=== PATIENT | female | born 1985 | race Caucasian/White ===

== ENCOUNTER → 2016-10-23 | Outpatient (CLI) | payer SELFPAY | LOC: COL.RAD 07:56 | DX: N97.9 Female infertility, unspecified (principal); Z98.891 History of uterine scar from previous surgery ==

== ENCOUNTER 2017-07-27 22:55 | Emergency (ER) | payer BC ==
[~2017-07-27] VITALS: Ht 162.6 cm; Wt 72.3 kg
[2017-07-27 23:00] VITALS: BP 129/79; TEMP 98.3
[2017-07-27] MEDS ORDERED: PRENATAL MVI (23:09)
[2017-07-27] MEDS ORDERED: ZOFRAN ODT4 MG PO (23:09)
[2017-07-28 01:30] LABS: PROTHROMBIN TIME 11.7 SECONDS (9.7-12.8)
[2017-07-28 01:32] LABS: BASO % 0.3 % (0.0-2.0); EOS # 0.1 (0.0-0.7); EOS % 1.2 % (0-4.0); GRAN # 5.6 (1.4-6.5); GRAN % 63.2 % (42.2-75.2); HEMATOCRIT 39.7 % (37.0-47.0); HEMOGLOBIN 13.7 g/dl (12.5-16.0); LYMPH # 2.4 (1.2-3.4); MEAN CELL VOLUME 84 fl (80.0-100.0); MEAN CORPUSCULAR HEMOGLOBIN 29 pg (27.0-31.0); MEAN CORPUSCULAR HGB CONC 35 g/dl (33.0-37.0); MEAN PLATELET VOLUME 10.8 fl (7.4-10.4); MONO # 0.7 (0.1-0.6); PLATELET COUNT 215 K/mm3 (130-400); RED BLOOD COUNT 4.71 M/mm3 (4.10-5.30); REDCELL DISTRIBUTION WIDTH-CV 12.7 % (11.5-14.5)
[2017-07-28 01:45] LABS: CALCIUM 9.3 mg/dL (8.4-10.2); CREATININE, serum 0.49 mg/dL (0.52-1.25); POTASSIUM 3.8 mmol/L (3.4-5.0)
[2017-07-28 02:22] VITALS: PULSE 84
[2017-07-28 02:28] LABS: COLLECTION METHOD CATHETER
[2017-07-28 02:43] LABS: PH 7 (5-8); SQUAMOUS EPITHELIAL 0-2 /hpf; URINE APPEARANCE Clear; URINE BACTERIA None Seen /hpf; URINE BILIRUBIN Negative (NEGATIVE); URINE BLOOD Negative (NEGATIVE); URINE COLOR Yellow; URINE GLUCOSE Negative (NEGATIVE); URINE KETONE Negative (NEGATIVE); URINE LEUKOCYTE ESTERASE Trace (NEGATIVE); URINE NITRATE Negative (NEGATIVE); URINE PROTEIN(semi-quant) Negative (NEGATIVE); URINE RBC 0-2 /hpf; URINE UROBILINOGEN Negative (NEGATIVE)
== END 2017-07-28 02:46 | disposition home or self-care (01) ==
LOC: COL.ER 22:55
PROVIDERS: Nurse Practitioner Primary Care
DX: O46.91 Antepartum hemorrhage, unspecified, first trimester (principal); Z98.890 Other specified postprocedural states; Z3A.13 13 weeks gestation of pregnancy

== ENCOUNTER → 2018-09-11 | Outpatient (CLI) | payer SELFPAY ==
[~2018-09-11] MED LIST: PRENATAL MVI; ZOFRAN ODT4 MG PO
== END ==
LOC: COL.RAD 13:25
DX: N97.9 Female infertility, unspecified (principal)

== ENCOUNTER 2021-06-11 11:52 | Outpatient (CLI) | payer BC ==
[~2021-06-11] VITALS: Ht 165.1 cm; Wt 76.4 kg
--- NOTE | 2021-06-11 11:55 | NUR ---
378163.4 G5L4 arrives on unit with c/o leaking of vaginal fluids. Ambulatory to LDR6. Change into clean gown. Denies any VB or contractions. Reports normal movement. 1202EFM explained and placed. VS obtained. Assessment completed. 1207Amnitest negative. SVE FT/TH/HI. White vaginal discharge noted to glove. 1227Dr. Roberta updated on pt. See physician notification. 1230EFM off. Up to bathroom to change. 1240Discharge instructions reviewed with pt and spouse who verbalize understanding. Ambulatory off unit.
[2021-06-11 12:05] VITALS: BP 131/78; PULSE 82; TEMP 98.4
[2021-06-11] MEDS ORDERED: FLONASEALLERGY NS (12:22)
[2021-06-11 12:30] VITALS: BP 136/81; PULSE 88
== END 2021-06-11 12:40 | disposition home or self-care (01) ==
LOC: LDRO 11:52
DX: O26.899 Other specified pregnancy related conditions, unspecified trimester (principal); N89.9 Noninflammatory disorder of vagina, unspecified; Z3A.24 24 weeks gestation of pregnancy

== ENCOUNTER 2021-08-21 19:02 | Outpatient (CLI) | payer BC ==
[~2021-08-21] VITALS: Ht 162.6 cm; Wt 78.6 kg
[~2021-08-21 19:02] MED LIST changes: +FLONASEALLERGY NS
--- NOTE | 2021-08-21 19:10 | NUR ---
G5L4 at 34 weeks and 5 days arrives to unit with complaint of vaginal pressure and increased discharge over the last 3 days. Pt reports feeling a lot of vaginal pressure which gets better when patient lays down. Denies loss of fluid or vaginal bleeding. Lots of movement per patient. Reports feeling occasional strong contractions but nothing consistent or feeling like labor. Pt is mainly worried about the vaginal pressure. Pt oriented to room, call light within reach, bed in low and locked position. Clean gown on. Vitals obtained. Admission assessment started. US and toco explained and applied. SVE 1-2/60/-3, membranes intact, vertex position felt. Initial blood pressure elevated, will monitor every 15 minutes.
[2021-08-21 19:30] VITALS: BP 157/88; PULSE 86; TEMP 98.6
[2021-08-21 20:00] VITALS: BP 137/84; PULSE 80
--- NOTE | 2021-08-21 20:20 | NUR ---
SVE unchanged over 1 hour. Category 1 FHR tracing obtained. Pt feels comfortable with going home at this time. Dr. Atkins notified see physician notification. 2044 - Discharge instructions reviewed with patient and spouse, verbalized understanding. Pt seen ambulating off unit with spouse.
[2021-08-21 20:35] VITALS: BP 132/82; PULSE 80
[2021-08-21] MEDS ORDERED: PEPCID40 MG PO (23:27)
== END 2021-08-21 20:45 | disposition home or self-care (01) ==
LOC: LDRO 19:02
DX: O34.63 Maternal care for abnormality of vagina, third trimester (principal); Z3A.34 34 weeks gestation of pregnancy

== ENCOUNTER 2021-08-28 09:14 | Outpatient (CLI) | payer BC ==
[~2021-08-28] VITALS: Ht 162.6 cm; Wt 78.8 kg
[~2021-08-28 09:14] MED LIST changes: +PEPCID40 MG PO
--- NOTE | 2021-08-28 09:25 | NUR ---
Pt arrived on unit ambulatory with concerns for pressure, contractions and possible leaking of fluid starting this morning. Pt denies any bleeding and reports normal movement. EFM and toco monitors started. SVE by this RN 1-/ with negative amnio-trace and no fluid noted on exam. Vital signs WNL. Information reviewed with Dr. Granados. See physician notifications for details.
[2021-08-28 10:40] VITALS: BP 139/68; PULSE 74; TEMP 98.2
== END 2021-08-28 10:55 | disposition home or self-care (01) ==
LOC: LDRO 09:14
DX: Z34.93 Encounter for supervision of normal pregnancy, unspecified, third trimester (principal); Z3A.35 35 weeks gestation of pregnancy

== ENCOUNTER 2021-09-15 15:04 | Outpatient (CLI) | payer BC ==
[~2021-09-15] VITALS: Ht 162.6 cm; Wt 80.9 kg
[2021-09-15 15:40] VITALS: BP 143/84; PULSE 97; TEMP 98.2
--- NOTE | 2021-09-15 16:11 | NUR ---
1516-PT ARRIVED TO L&D C/O PELVIC PRESSURE. PT DENIES DECREASED FM, LEAKING OF FLUID, AND VAGINAL BLEEDING. PT PLACED IN ROOM 5 FOR FURTHER ASSESSMENT.
--- NOTE | 2021-09-15 16:18 | NUR ---
1557-PT DISCHARGED HOME IN STABLE CONDITION WITH NO COMPLAINTS. LABOR PRECAUTIONS AND KICK COUNTS EXPLAINED TO PT. PT VERBALIZED UNDERSTANDING.
== END 2021-09-15 15:57 | disposition home or self-care (01) ==
LOC: LDRO 15:04
DX: Z34.93 Encounter for supervision of normal pregnancy, unspecified, third trimester (principal); Z3A.38 38 weeks gestation of pregnancy

== ENCOUNTER 2021-09-17 01:18 | Outpatient (CLI) | payer BC ==
[~2021-09-17] VITALS: Ht 162.6 cm; Wt 81.2 kg
[2021-09-17 02:00] VITALS: BP 135/87; PULSE 79; TEMP 97.9
--- NOTE | 2021-09-17 02:53 | NUR ---
PT GIVEN WRITTEN AND VERBAL DISCHARGE INSTRUCTIONS FOR DISCOMFORTS OF , ERALY LABOR SIGNS, INSTRUCTIONS WHEN TO RETURN IF BLEEDING, SROM, LEAKING, REGULAR STRONG UC'S. PT VERBALIZED UNDERSTANDING. PT NOT IN LABOR, AMB OUT WITH .
== END 2021-09-17 02:55 | disposition home or self-care (01) ==
LOC: LDRO 01:18 → LDR 01:25 → LDRO 02:55
DX: O99.619 Diseases of the digestive system complicating pregnancy, unspecified trimester (principal); Z3A.00 Weeks of gestation of pregnancy not specified
CPT/HCPCS: OP

== ENCOUNTER 2021-09-28 06:53 | Inpatient (IN) | payer BC ==
[~2021-09-28] VITALS: Ht 162.6 cm; Wt 81.8 kg
[2021-09-28] VITALS (29 sets, daily range): BP systolic 129–177; BP diastolic 67–95; PULSE 67–96; TEMP 97.7–98.4
--- NOTE | 2021-09-28 07:05 | NUR ---
0705-G5L4 40.[address] Hicks to unit with complaints of SROM at 0530 and contractions. Reports some light red to pink discharge in addition to contractions. Assisted into gown and placed on EFM. BP elevated, denies headache or vision changes see flow record. Patient reports this is a surrogate pregancny. Amnitest negative. SVE /-2. Updated Dr. Granados who reports he is in route to [facility]. Orders to admit patient and start Ancef for GBS positive, patient has an allergy to Penicillin. 0735-Dr. Granados on unit. In to see patient. IV started by CHRISTEN Cruz attempt x2. Blood collected and sent to lab per orders. Ancef started, see EMAR. Consents reviewed and signed. Biologic mother to patients room.
[2021-09-28 07:57] LABS: BASO # 0.1 K/mm3 (0.0-0.2); BASO % 0.6 % (0.0-2.0); EOS # 0.1 K/mm3 (0.0-0.7); EOS % 1.2 % (0.0-4.0); GRAN # 6.1 K/mm3 (1.4-6.5); GRAN % 68.5 % (42.2-75.2); HEMATOCRIT 37.7 % (37.0-47.0); HEMOGLOBIN 12.6 g/dl (12.5-16.0); LYMPH # 1.8 K/mm3 (1.2-3.4); MEAN CELL VOLUME 81 fl (80.0-100.0); MEAN CORPUSCULAR HEMOGLOBIN 27 pg (27-31); MEAN CORPUSCULAR HGB CONC 33 g/dl (33.0-37.0); MEAN PLATELET VOLUME 10.7 fl (7.4-10.4); MONO # 0.8 K/mm3 (0.1-0.6); MONO % 9.1 % (1.7-9.3); PLATELET COUNT 209 K/mm3 (130-400); RED BLOOD COUNT 4.66 M/mm3 (4.10-5.30); REDCELL DISTRIBUTION WIDTH-CV 13.2 % (11.5-14.5)
[2021-09-28 08:17] LABS: ALBUMIN 2.5 gm/dL (3.5-5.0); BILIRUBIN,TOTAL 0.3 mg/dL (0.2-1.2); CALCIUM 9.1 mg/dL (8.4-10.2); CREATININE, serum 0.63 mg/dL (0.57-1.11); POTASSIUM 3.9 mmol/L (3.5-4.5); TOTAL PROTEIN 6.3 gm/dL (6.2-8.1)
--- NOTE | 2021-09-28 08:20 | NUR ---
0820-Patient requests epidural. JOE Motley notified. 09-JOE Motley to patient room. Patient sitting upright on bedside for placement of epidural. 0910-Test dose administered by JOE Motley. Patient tolerated procedure well. See anesthesia flow record. 0940-Dr. Granados to patient room. No new orders. 0950-Owen to DD. Clear yellow urine return. Dr. Granados updated on SVE /-2. Repostioned [facility].
--- NOTE | 2021-09-28 10:45 | NUR ---
1045-SVE by Dr. Granados, no change /2. Difficutly tracing contractions via toco. RN frequently readjusting montiors.
--- NOTE | 2021-09-28 11:05 | NUR ---
1105-Patient nauseated and has 450ml emesis. Dr. Granados returns to room. Order for PRN zofran if patient desires. Patient declined. 1140-Patient reports some discomfort, SVE by this RN . Updated MD who remains on unit. 1210-SVE by this RN. . Dr. Granados notified. See MD notification.
--- NOTE | 2021-09-28 12:45 | NUR ---
1245-Deep decel down to 60bpm, SVE 10/100/+1. Dr. Granados already on unit and to patient room. Patient set up for delivery. 1247-Patient begins pushing with good effort and movement on vertex. 1251-Spontaneous delivery of head attended by Dr. Granados. Immediately body follows. Viable femal infant to mothers abdomen. Nares and mouth cleared with bulb suction by MD. Cord clamped x 2 and cut by surrogate mother. skin to skin with surrogate per plan. 1258-Spontaneous delivery of intact placenta by . Alicia WNL. EBL 100ml. Fudnal massage firm. Pitocin bolus satarted per MD order and protocol. Periurethal repair by . Pericare provided. Updated on plan of care and safety.
[2021-09-29 02:55] VITALS: BP 139/95; PULSE 78; TEMP 97.9
[2021-09-29 05:14] LABS: HEMOGLOBIN 10.8 g/dl (12.5-16.0)
[2021-09-29 05:15] LABS: HEMATOCRIT 34.2 % (37.0-47.0)
[2021-09-29] MEDS ORDERED: MOTRIN 800800 MG/TAB PO (06:17)
[2021-09-29] MEDS ORDERED: ROXICODONE 55 MG/TAB PO (06:17)
[2021-09-29 09:53] VITALS: BP 133/83; PULSE 78; TEMP 97.3
== END 2021-09-29 15:30 | disposition home or self-care (01) | DRG 768 ==
LOC: LDRO 06:53 → LDR 07:31 → OB 07:31
PROVIDERS: ADMIT Obstetrics & Gynecology
PROC: 10E0XZZ Delivery of Products of Conception, External Approach (ICD-10-PCS; principal; 2021-09-28)
PROC: 0UQJXZZ Repair Clitoris, External Approach (ICD-10-PCS; 2021-09-28)
PROC: 0UQMXZZ Repair Vulva, External Approach (ICD-10-PCS; 2021-09-28)
DX: O99.824 Streptococcus B carrier state complicating childbirth (principal); Z37.0 Single live birth; O48.0 Post-term pregnancy; O76 Abnormality in fetal heart rate and rhythm complicating labor and delivery; O13.4 Gestational [pregnancy-induced] hypertension without significant proteinuria, complicating childbirth; Z88.0 Allergy status to penicillin; Z3A.40 40 weeks gestation of pregnancy; O71.82 Other specified trauma to perineum and vulva; O70.0 First degree perineal laceration during delivery
CPT/HCPCS: J0690; J2590; J7120